=== PATIENT | female | born 1945 | race Caucasian/White ===

== ENCOUNTER 2022-08-09 09:10 | Day surgery (SDC) | payer MEDICARE, SELFPAY ==
[2022-08-04 10:17] VITALS: BMI 46.2
--- NOTE | 2022-08-06 09:28 | MHC.SHP ---
Pre-Procedural Eval Section A Date of Service: 08/06/22 The patient is an INPATIENT: No Changes since office visit: No Cold of Flu in the past 2 weeks, No New Medical Problems, No Changes in Medication and No Patient answered all questions The History & Physical has been completed within 30 days and I have reviewed it.: Yes Section B Chief Complaint: Age-related nuclear cataract, right eye Allergies: Allergies Allergy/AdvReac Type Severity Reaction Status Date / Time No Known Allergies Allergy Verified 08/04/22 10:16 Plan Diagnosis/Plan: Unchanged I have reviewed the history and physical and performed a pertinent physical examination on my patient. No changes have occurred unless specified. Time Spent With Patient Time: Total time managing care of this patient today ____ minutes.
--- NOTE | 2022-08-06 10:38 | P.CONAN_ITS ---
Documented by User: Gissell Wiggins NP 08/06/22 10:38 HPI - Anesthesia Eval Consult details Narrative: 77yo F for Right Cataract Extraction IOL Insertion PCP cleared No previous cataract on record [facility] Past Medical History Medical History Back pain Cardiac murmur Cataract HTN (hypertension) Knee pain Surgical History Surgical History History of ankle surgery History of repair of hip fracture Hx of hand surgery Social History Social History (Updated 08/04/22 @ 10:20 by Azeb Markham RN) Household Members: None Housing: House Are you a primary direct support professional caregiver to a significant other at home: No Do you presently have visiting nurse or other home services: No Patient Tobacco Use Status: Never used Tobacco Use of substances other than those prescribed or required for medical reasons: No Have you been hit, kicked, punched, or otherwise hurt by someone within the past year? If so, by whom?: No Are you DNR?: No Advance Directives: No Advance Directives Information Provided: Yes Advance Directives on File: No Recently lost weight without trying: No Nutrition Risks: Surgical patient >75years Current occupational status: employed Current occupation: [employer] Meds Allergies Allergy/AdvReac Type Severity Reaction Status Date / Time No Known Allergies Allergy Verified 08/09/22 11:19 Home Medications Medication Instructions Recorded Confirmed Last Taken Type No Known Home Meds 08/04/22 08/04/22 Unknown History Exam Exam Date and Time: August 06, 2022 1038 Height,Weight and Vital Signs: Height 5 ft 3.5 in Weight 120.202 kg Assessment and Plan Assessment Anesthesia Assessment: Chart Reviewed Documented by User: Negrito Clement MD 08/09/22 14:51 HPI - Anesthesia Eval Consult details Narrative: 77yo F for Right Cataract Extraction IOL Insertion Obesity As per PCP , she is optimized No previous cataract on record [facility] Past Medical History Medical History Back pain Cardiac murmur Cataract HTN (hypertension) Knee pain Functional capacity: independent ambulation Family History Family history of problems with anesthesia: No Surgical History Surgical History History of ankle surgery History of repair of hip fracture Hx of hand surgery History of Problems with Anesthesia: No Social History Social History (Updated 08/04/22 @ 10:20 by Azeb Markham RN) Household Members: None Housing: House Are you a primary direct support professional caregiver to a significant other at home: No Do you presently have visiting nurse or other home services: No Patient Tobacco Use Status: Never used Tobacco Use of substances other than those prescribed or required for medical reasons: No Have you been hit, kicked, punched, or otherwise hurt by someone within the past year? If so, by whom?: No Are you DNR?: No Advance Directives: No Advance Directives Information Provided: Yes Advance Directives on File: No Recently lost weight without trying: No Nutrition Risks: Surgical patient >75years Current occupational status: employed Current occupation: [employer] Meds Allergies Allergy/AdvReac Type Severity Reaction Status Date / Time No Known Allergies Allergy Verified 08/09/22 11:19 Home Medications Medication Instructions Recorded Confirmed Last Taken Type No Known Home Meds 08/04/22 08/04/22 Unknown History Exam Airway Mallampati Class: III Neck ROM: Full Loose/Missing/Broken Teeth: Yes Heart: S1,S2 Lungs: distant breath sounds Assessment and Plan Final Anesthetic Review Family History of Problems with Anesthesia: No History of Problems with Anesthesia: No NPO: Yes ASA Class: III Final Preanesthetic Review: Meds/Allgs Chart Reviewed, Consent Obtained/Reviewed and Anes Risks/Benef Reviewed Patient Risk: Intermediate Procedure Risk: Intermediate Anesthetic Plan Anesthetic Plan: MAC: Disposition: Standard PACU
[2022-08-09] MEDS: Ketorolac Tromethamine 0.5% Op 5 ML DROPS 1 DROP EYE-RIGHT ×3 (10:56→11:06)
[2022-08-09] MEDS: Tetracaine HCl/PF 0.5% Oph Sol 4 ML DROPS 1 DROP EYE-RIGHT (10:56)
[2022-08-09] MEDS: Tropicamide 1 % Ophth Sol 3 ML BTL 1 DROP EYE-RIGHT ×3 (10:56→11:09)
[2022-08-09] MEDS: Phenylephrine HCL 2.5% Oph SoL 2 ML BOTTLE 1 DROP EYE-RIGHT ×3 (10:56→11:06)
[2022-08-09] MEDS: Cyclopentolate 1 % Ophth Sol 2 ML DRPBTL 1 DROP EYE-RIGHT ×3 (10:56→11:06)
[2022-08-09 11:03] VITALS: BP 157/70; PULSE 69; RESP 18; TEMP 36.7; O2SAT 97
[2022-08-09] MEDS: Lactated Ringers 500 ML 50 ML IV (11:09)
--- NOTE | 2022-08-09 12:11 | HO.PNOPHT ---
Ophthalmology Procedure Procedure Date of Service: 08/09/22 Ophthalmology Viscoelastic: Donaldo Guillory Dual Pack Pro Ophthalmology Lenses: TECKELLIE [id number] (23) Procedure Notes: PREOPERATIVE DIAGNOSIS: Decreased visual acuity right eye secondary to cataract POSTOPERATIVE DIAGNOSIS: Same PROCEDURE: Right cataract extraction with intraocular lens insertion SURGEON: Charles Roberts M.D. ANESTHESIA: Topical/MAC ESTIMATED BLOOD LOSS: None COMPLICATIONS: None After obtaining informed consent, the patient was brought to the operating room suite and placed in the supine position. After adequate sedation per anesthesia, topical drops of Tetracaine were given to the right eye. The eye was then prepped and draped in the usual sterile fashion. The operating room microscope was then positioned over the operative eye and a lid speculum placed. A paracentesis was created. Viscoelastic was then instilled into the anterior chamber. A three plane incision was then created temporally, utilizing a 2.85 mm keratome. Capsulotomy forceps were then utilized to create a circular tear capsulotomy. Hydrodissection and hydrodelineation were carried out until adequate mobilization of the nucleus occurred. Phacoemulsification was then utilized to remove the dense central nucleus followed by removal of the cortical material utilizing the automated aspiration irrigation unit. Viscoelastic was instilled into the posterior capsular bag followed by placement of a posterior chamber intraocular lens without difficulty. The residual Viscoelastic was then removed utilizing the automated IA machine. The wound was checked and found to be watertight. The patient tolerated the procedure well and the lid speculum was removed. Intracameral injection of Vigamox 0.1 mL followed by a subtenon injection of Kenalog-40 0.2 mL were administered. The patient will be seen in the a.m.
[2022-08-09 12:47] VITALS: BP 167/80; PULSE 65; RESP 18; TEMP 36.8; O2SAT 98
== END 2022-08-09 12:51 | disposition home or self-care (01) ==
PROVIDERS: PCP Nurse Practitioner Primary Care; Visit Provider Ophthalmology
PROC: (CPT 66985; principal; 2022-08-09 12:20)
DX: H25.11 Age-related nuclear cataract, right eye (principal); H52.4 Presbyopia; H18.413 Arcus senilis, bilateral; R01.1 Cardiac murmur, unspecified; I10 Essential (primary) hypertension; E66.01 Morbid (severe) obesity due to excess calories
CPT/HCPCS: 66984; J2250; J3010; J3301; V2632

== ENCOUNTER 2022-08-23 09:41 | Day surgery (SDC) | payer MEDICARE, SELFPAY ==
[2022-08-04 10:23] VITALS: BMI 46.2
--- NOTE | 2022-08-19 16:01 | MHC.SHP ---
Pre-Procedural Eval Section A Date of Service: 08/19/22 The patient is an INPATIENT: No Changes since office visit: No Cold of Flu in the past 2 weeks, No New Medical Problems, No Changes in Medication and No Patient answered all questions The History & Physical has been completed within 30 days and I have reviewed it.: Yes Section B Chief Complaint: Age-related nuclear cataract, left eye Allergies: Allergies Allergy/AdvReac Type Severity Reaction Status Date / Time No Known Allergies Allergy Verified 08/09/22 11:19 Plan Diagnosis/Plan: Unchanged I have reviewed the history and physical and performed a pertinent physical examination on my patient. No changes have occurred unless specified. Time Spent With Patient Time: Total time managing care of this patient today ____ minutes.
[2022-08-23 10:42] VITALS: BP 163/68; PULSE 73; RESP 18; TEMP 36.1; O2SAT 98
--- NOTE | 2022-08-23 10:45 | P.CONAN_ITS ---
FORM[facility]LY [facility] Past Medical History Medical History Back pain Cardiac murmur Cataract HTN (hypertension) Knee pain Family History Family history of problems with anesthesia: No Surgical History Surgical History History of ankle surgery History of repair of hip fracture Hx of hand surgery History of Problems with Anesthesia: No Social History Social History (Updated 08/04/22 @ 10:20 by Azeb Markham RN) Household Members: None Housing: House Are you a primary ocular care technologist to a significant other at home: No Do you presently have visiting nurse or other home services: No Patient Tobacco Use Status: Never used Tobacco Use of substances other than those prescribed or required for medical reasons: No Have you been hit, kicked, punched, or otherwise hurt by someone within the past year? 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 Meds Allergies Allergy/AdvReac Type Severity Reaction Status Date / Time No Known Allergies Allergy Verified 08/09/22 11:19 Active Medications: Current Medications Cyclopentolate HCl (Cyclopentolate 1 % Ophth Gissel 2 Ml Drpbtl) 1 drop EYE-LEFT Q5M JUANA Stop: 08/23/22 10:56 Ketorolac Tromethamine (Ketorolac Tromethamine 0.5% Op 5 Ml Drops) 1 drop EYE- LEFT Q5M JUANA Stop: 08/23/22 10:56 Phenylephrine HCl (Phenylephrine Hcl 2.5% Oph Gissel 2 Ml Bottle) 1 drop EYE-LEFT Q5M JUANA Stop: 08/23/22 10:56 Povidone Iodine (Povidone Iodine 5 % Ophth Soln 30 Ml Bottle) 1 appl EYE-LEFT PREOP PRN PRN Reason: Pre-Op Surgical Implant Prophy Tropicamide (Tropicamide 1 % Ophth Gissel 3 Ml Btl) 1 drop EYE-LEFT Q5M JUANA Stop: 08/23/22 10:56 Home Medications Medication Instructions Recorded Confirmed Last Taken Type No Known Home Meds 08/04/22 08/04/22 Unknown History Exam Exam Date and Time: August 23, 2022 1045 Height,Weight and Vital Signs: Height 5 ft 3.5 in Weight 120.202 kg Airway Mallampati Class: II TM Dist: >3cm Neck ROM: Full Heart: rrr Lungs: cta Assessment and Plan Assessment Anesthesia Assessment: Anesthesia Plan Discussed and Chart Reviewed Final Anesthetic Review Family History of Problems with Anesthesia: No History of Problems with Anesthesia: No NPO: Yes ASA Class: II Final Preanesthetic Review: No Changes in Pt Med Stat, Meds/Allgs Chart Reviewed and Consent Obtained/Reviewed Patient Risk: Intermediate Procedure Risk: Intermediate Anesthetic Plan Anesthetic Plan: MAC: Disposition: Standard PACU
[2022-08-23 10:55] VITALS: BMI 46.0
[2022-08-23] MEDS: Lactated Ringers 500 ML 50 ML IV (11:16)
[2022-08-23] MEDS: Tetracaine HCl/PF 0.5% Oph Sol 4 ML DROPS 1 DROP EYE-LEFT (11:17)
[2022-08-23] MEDS: Ketorolac Tromethamine 0.5% Op 5 ML DROPS 1 DROP EYE-LEFT ×2 (11:18→11:20)
[2022-08-23] MEDS: Phenylephrine HCL 2.5% Oph SoL 2 ML BOTTLE 1 DROP EYE-LEFT ×3 (11:18→11:22)
[2022-08-23] MEDS: Cyclopentolate 1 % Ophth Sol 2 ML DRPBTL 1 DROP EYE-LEFT ×3 (11:18→11:22)
[2022-08-23] MEDS: Tropicamide 1 % Ophth Sol 3 ML BTL 1 DROP EYE-LEFT ×3 (11:18→11:23)
--- NOTE | 2022-08-23 12:13 | HO.PNOPHT ---
Ophthalmology Procedure Procedure Date of Service: 08/23/22 Ophthalmology Viscoelastic: Healbhanu Tongt Dual Pack Pro Ophthalmology Lenses: TECKELLIE [id number] (22) Procedure Notes: PREOPERATIVE DIAGNOSIS: Decreased visual acuity left eye secondary to cataract POSTOPERATIVE DIAGNOSIS: Same PROCEDURE: Left cataract extraction with intraocular lens insertion SURGEON: Charles Roberts M.D. ANESTHESIA: Topical/MAC ESTIMATED BLOOD LOSS: None COMPLICATIONS: Capsular tear After obtaining informed consent, the patient was brought to the operation room suite and placed in the supine position. After adequate sedation per anesthesia, topical drops of Tetracaine were given to the left eye. The eye was then prepped and draped in the usual sterile fashion. The operating room microscope was then positioned over the operative eye and a lid speculum placed. A paracentesis was created. Viscoelastic was then instilled into the anterior chamber. A three plane incision was then created temporally, utilizing a 2.85 mm keratome. Capsulotomy forceps were then utilized to create a circular tear capsulotomy. Hydrodissection and hydrodelineation were carried out until adequate mobilization of the nucleus occurred. Phacoemulsification was then utilized to remove the dense central nucleus followed by removal of the cortical material utilizing the automated aspiration irrigation unit. Viscoat elastic was instilled into the posterior capsular bag followed by placement of a posterior chamber intraocular lens.The PCIOL turned vertical. Viscoelastic was instilled and the PCIOL was positioned in the bag. The residual Viscoat elastic was then removed utilizing the automated IAmachine.The PCIOL position was compromised and decentered so it was dialed out of the bag and placed into the sulcus. Miochol was instilled and an anterior Weck cell victrectomy was competed resulting in a small round pupil.The wound was check and found to be watertight. The patient tolerated the procedure well and the lid speculum was removed. Intracameral injection of Vigamox 0.1 mL followed by a subtenon injection of Kenalog-40 0.2 mL were administered. The patient will be seen in the a.m.
[2022-08-23 12:50] VITALS: BP 165/87; PULSE 65; RESP 18; TEMP 36.2; O2SAT 98
== END 2022-08-23 13:02 | disposition home or self-care (01) ==
PROVIDERS: PCP Nurse Practitioner Primary Care; Visit Provider Ophthalmology
PROC: (CPT 66985; principal; 2022-08-23 12:10)
DX: H25.12 Age-related nuclear cataract, left eye (principal); H59.212 Accidental puncture and laceration of left eye and adnexa during an ophthalmic procedure; H52.4 Presbyopia; H18.413 Arcus senilis, bilateral
CPT/HCPCS: 66984; 67005; J2250; J3010; J3301; V2632